=== PATIENT | male | born 1950 | race Caucasian/White ===

== ENCOUNTER 2018-09-17 02:19 | Emergency (ER) | payer SELFPAY ==
--- NOTE | 2018-09-17 02:41 | C.PDOC ---
History Of Present Illness Patient presents with not feeling well for about 3 days. Also complains of headache and some palpitations. No chest pain. Speaking in complete sentences. No f/c/n/v Time Seen by Provider: 09/17/18 02:40 History Per: Patient History/Exam Limitations: no limitations Onset/Duration Of Symptoms: Days Current Symptoms Are (Timing): Still Present Severity: Moderate Pain Scale Rating Of: 4 Recent travel outside of the [place]: No Additional History Per: Patient Past Medical History Reviewed: Historical Data, Nursing Documentation, Vital Signs - Medical History PMH: HTN, Hyperlipidemia Denies: Chronic Kidney Disease Surgical History: Hernia Repair Family History: States: No Known Family Hx - Social History Hx Tobacco Use: Yes (1 pack a day ) Hx Alcohol Use: No Hx Substance Use: No Review Of Systems Constitutional: Negative for: Fever, Chills Eyes: Negative for: Redness ENT: Negative for: Throat Pain Cardiovascular: Positive for: Palpitations. Negative for: Chest Pain Respiratory: Negative for: Shortness of Breath Gastrointestinal: Negative for: Abdominal Pain Genitourinary: Negative for: Dysuria Musculoskeletal: Negative for: Back Pain Skin: Negative for: Rash Neurological: Positive for: Headache Psych: Negative for: Anxiety Physical Exam - Physical Exam Appears: Non-toxic, No Acute Distress Skin: Warm, Dry Head: Normacephalic Eye(s): bilateral: Normal Inspection Oral Mucosa: Moist Neck: Supple Chest: Symmetrical Cardiovascular: Rhythm Regular Respiratory: No Rales, No Rhonchi, No Wheezing Gastrointestinal/Abdominal: Soft, No Tenderness, No Distention Back: Normal Inspection Extremity: Normal ROM Extremity: Bilateral: Atraumatic, No Pedal Edema Pulses: Left Dorsalis Pedis: Normal, Right Dorsalis Pedis: Normal Neurological/Psych: Oriented x3, Normal Speech, Normal Cognition Gait: Steady ED Course And Treatment - Laboratory Results Result Diagrams: 09/17/18 03:16 09/17/18 03:16 ECG: Interpreted By Me, Viewed By Me ECG Rhythm: Sinus Rhythm (54), Nonspecific Changes O2 Sat by Pulse Oximetry: 97 Pulse Ox Interpretation: Normal - Radiology CXR: Interpreted by Me, Viewed By Me CXR Interpretation: No: Infiltrates, Fracture, Pnemothorax Progress Note: patient states that he feels well and wants to go home. Understands the risks of posssible permanent disability and , but pt still wants to go home. No chest pain or palpitations. Will follow up in clinic Reevaluation Time: 06:12 Reassessment Condition: Improved Disposition Counseled Patient/Family Regarding: Studies Performed, Diagnosis, Need For Followup - Disposition Referrals: Estela Salguero MD [Medical Doctor] - Disposition: HOME/ ROUTINE Disposition Time: 02:40 Condition: FAIR Additional Instructions: Por favor regrese si los sntomas recurren o simplemente no se sienten roger. Necesitar un monitor de eventos Instructions: Palpitations (DC) Print Language: ITALIAN - Clinical Impression Clinical Impression: Palpitations
[2018-09-17] MEDS ORDERED: Aspirin 325 mg EC Tablets PO STA (02:57)
[2018-09-17] MEDS ORDERED: Aspirin 325 mg EC Tablets PO ONE (03:04)
[2018-09-17 03:24] LABS: VENOUS BLOOD GAS BASE EXCESS 4.7 mmol/L (0.0-2.0); VENOUS BLOOD GAS PCO2 51 mmHg (40-60); VENOUS BLOOD GAS PO2 33 mm/Hg (30-55); VENOUS BLOOD PH 7.39 (7.32-7.43)
[2018-09-17 03:27] LABS: PROTHROMBIN TIME 11.4 SECONDS (9.7-12.2)
[2018-09-17 03:31] LABS: BASO # 0.2 K/uL (0.0-0.2); HEMOGLOBIN 13.3 g/dL (12.0-18.0); LYMPH # 0.9 K/uL (1.0-4.3); LYMPH % 13.9 % (20.0-40.0); MEAN CELL VOLUME 94.1 fL (80.0-94.0); MEAN CORPUSCULAR HEMOGLOBIN 31.5 pg (27.0-31.0); MEAN CORPUSCULAR HGB CONC 33.5 g/dL (33.0-37.0); MEAN PLATELET VOLUME 10.9 fL (7.2-11.7); MONO # 0.5 K/uL (0.0-0.8); MONO % 7.4 % (0.0-10.0); NEUT # 3.7 K/uL (1.8-7.0); NEUT % 59.7 % (50.0-75.0); RBC 4.23 Mil/uL (4.40-5.90); WHITE BLOOD COUNT 6.2 K/uL (4.8-10.8)
[2018-09-17 03:32] LABS: ALB/GLOB RATIO 1.3 (1.0-2.1); ALBUMIN 4.3 g/dL (3.5-5.0); BLOOD UREA NITROGEN 25 mg/dL (9-20); GFR NON-AFRICAN AMERICAN > 60
[2018-09-17 03:43] LABS: B-TYPE NATRIURETIC PEPTIDE 102 pg/mL (0-900)
[2018-09-17 04:04] LABS: ALT/SGPT 25 U/L (21-72); AST/SGOT 32 U/L (17-59)
[2018-09-17 04:42] LABS: URINE BILIRUBIN NEGATIVE (NEGATIVE); URINE BLOOD NEGATIVE (NEGATIVE); URINE CLARITY Clear (Clear); URINE COLOR Straw (YELLOW); URINE GLUCOSE (UA) NORMAL (Normal); URINE LEUKOCYTE ESTERASE NEG Leu/uL (Negative); URINE PROTEIN NEGATIVE (NEGATIVE); URINE UROBILINOGEN NORMAL mg/dL (0.2-1.0)
[2018-09-17 06:27] VITALS: BP 127/73; PULSE 57; RESP 18; TEMP 98.2; O2SAT 98
--- NOTE | 2018-09-17 08:52 | RAD ---
Chest x-ray single frontal view HISTORY: Chest pain. COMPARISON: 05/21/2016 FINDINGS: Moderate venous congestion. Patchy increased markings at both lung bases. Small left pleural effusion. Enlarged ectatic aorta. Cardiomegaly. Degenerative changes in the spine and shoulders. Impression: Moderate venous congestion. Patchy increased markings at both lung bases. Small left pleural effusion. Enlarged ectatic aorta. Cardiomegaly.
== END 2018-09-17 06:26 | disposition home or self-care (01) ==
LOC: C.ER 02:19
DX: R00.2 Palpitations (principal); I10 Essential (primary) hypertension; E78.5 Hyperlipidemia, unspecified; Z87.891 Personal history of nicotine dependence

== ENCOUNTER 2018-09-25 11:30 | Inpatient (IN) | payer OTHER ==
--- NOTE | 2018-09-25 12:48 | C.PDOC ---
History Of Present Illness 68 y/o male presents to ED c/o chest pain since last night. He also complains of dizziness and frontal headache. Pt notes he suffers from palpitations and was referred to suture gauger and has an appointment scheduled for 10/04. Chest pain is 6/10 in severity. Denies syncope, shortness of breath, or fever. He reports taking Aspirin last night. Financial Reporting Accountant Jose ([id number]) was used. <Jailene Pena - Last Filed: 09/25/18 16:30> <Phylicia Ramey - Last Filed: 09/25/18 12:33> History Per: Patient History/Exam Limitations: no limitations <Jailene Pean - Last Filed: 09/25/18 16:30> Time Seen by Provider: 09/25/18 12:05 Chief Complaint (Nursing): Chest Pain Past Medical History Vital Signs: Last Vital Signs Temp 98.2 F 09/25/18 12:00 Pulse 67 09/25/18 12:10 Resp 20 09/25/18 12:00 BP 124/68 09/25/18 12:10 Pulse Ox 98 09/25/18 12:00 - Medical History PMH: HTN, Hyperlipidemia Denies: Chronic Kidney Disease Surgical History: Hernia Repair - Social History Hx Tobacco Use: Yes (1 pack a day ) Hx Alcohol Use: No Hx Substance Use: No - Immunization History Hx Tetanus Toxoid Vaccination: No Hx Influenza Vaccination: No Hx Pneumococcal Vaccination: No <Phylicia Ramey - Last Filed: 09/25/18 12:33> Vital Signs: Last Vital Signs Temp 98.1 F 09/25/18 14:47 Pulse 56 L 09/25/18 14:47 Resp 18 09/25/18 14:47 BP 118/70 09/25/18 14:47 Pulse Ox 98 09/25/18 14:47 <Jailene Pena - Last Filed: 09/25/18 16:30> Physical Exam - Physical Exam Additional Physical Exam Comments: Gen: NAD, cooperative, well appearing, non-toxic. Head: NCAT. HEENT: EYES: PERRL, EOMI, conjunctiva clear, EARS: TMs clear MOUTH: moist MM, posterior pharynx without erythema or exudate, uvula midline. Neck: Normal ROM, supple. No paracervical or midline tenderness. CV: (+) S1S2, RRR, no M/G/R LUNGS: CTA B/L, No W/R/R, good air movement Abd: Soft, NTTP, no guarding, rebound or rigidity. Neuro: AAO x 3, GCS 15, CN 2-12 intact, motor and sensory grossly intact, 5/5 muscle strength B/L UE's and LE's. ext: no cyanosis or edema <Jailene Pena - Last Filed: 09/25/18 16:30> ED Course And Treatment O2 Sat by Pulse Oximetry: 98 <Phylicia Ramey - Last Filed: 09/25/18 12:33> - Laboratory Results Result Diagrams: 09/25/18 14:16 09/25/18 14:16 <Jailene Pena - Last Filed: 09/25/18 16:30> Disposition <Phylicia Ramey - Last Filed: 09/25/18 12:33> <Jailene Pena - Last Filed: 09/25/18 16:30> - Disposition Forms: [employer] ([place]) - Scribe Statement The provider has reviewed the documentation as recorded by the Scribe KP All medical record entries made by the Scribe were at my direction and personally dictated by me. I have reviewed the chart and agree that the record accurately reflects my personal performance of the history, physical exam, medical decision making, and the department course for this patient. I have also personally directed, reviewed, and agree with the discharge instructions and disposition. <Jailene Pena - Last Filed: 09/25/18 16:30>
[2018-09-25] MEDS ORDERED: Aspirin 325 mg EC Tablets PO STA (12:50)
[2018-09-25] MEDS ORDERED: Aspirin 325 mg EC Tablets PO ONE (13:04)
--- NOTE | 2018-09-25 13:12 | RAD ---
Date of service: 09/25/2018 PROCEDURE: CHEST RADIOGRAPH, 1 VIEW HISTORY: chest pain COMPARISON: 09/17/2018 FINDINGS: LUNGS: The lungs are well inflated and clear. PLEURA: No pneumothorax or pleural effusion. CARDIOVASCULAR: The heart is normal in size. No aortic atherosclerotic calcifications present. OSSEOUS STRUCTURES: Within normal limits for the patient's age. VISUALIZED UPPER ABDOMEN: Normal. OTHER FINDINGS: None. IMPRESSION: No active pulmonary disease.
[2018-09-25 14:24] LABS: BASO # 0.1 K/uL (0.0-0.2); EOS # 0.8 K/uL (0.0-0.7); EOS % 14.2 % (0.0-4.0); LYMPH # 1.4 K/uL (1.0-4.3); LYMPH % 24.3 % (20.0-40.0); MEAN CELL VOLUME 95.1 fL (80.0-94.0); MEAN CORPUSCULAR HEMOGLOBIN 31.7 pg (27.0-31.0); MEAN CORPUSCULAR HGB CONC 33.3 g/dL (33.0-37.0); MEAN PLATELET VOLUME 11.7 fL (7.2-11.7); MONO # 0.4 K/uL (0.0-0.8); MONO % 7.8 % (0.0-10.0); NEUT % 52.7 % (50.0-75.0); NRBC % 0.1 % (0.0-2.0); RBC 4.1 Mil/uL (4.40-5.90); RED CELL DISTRIBUTION WIDTH 12.7 % (11.5-14.5); WHITE BLOOD COUNT 5.7 K/uL (4.8-10.8)
[2018-09-25 14:46] LABS: ALB/GLOB RATIO 1.4 (1.0-2.1); ALBUMIN 4.4 g/dL (3.5-5.0); ALT/SGPT 24 U/L (21-72); AST/SGOT 37 U/L (17-59); BLOOD UREA NITROGEN 17 mg/dL (9-20); CALCIUM 8.9 mg/dl (8.6-10.4); GFR NON-AFRICAN AMERICAN > 60
--- NOTE | 2018-09-25 16:33 | C.PDOC ---
Time Seen by Provider: 09/25/18 12:05 Chief Complaint (Nursing): Chest Pain Past Medical History Vital Signs: Last Vital Signs Temp 98.1 F 09/25/18 14:47 Pulse 56 L 09/25/18 14:47 Resp 18 09/25/18 14:47 BP 118/70 09/25/18 14:47 Pulse Ox 98 09/25/18 14:47 - Medical History PMH: HTN, Hyperlipidemia Denies: Chronic Kidney Disease Surgical History: Hernia Repair - Social History Hx Tobacco Use: Yes (1 pack a day ) Hx Alcohol Use: No Hx Substance Use: No - Immunization History Hx Tetanus Toxoid Vaccination: No Hx Influenza Vaccination: No Hx Pneumococcal Vaccination: No ED Course And Treatment - Laboratory Results Result Diagrams: 09/25/18 14:16 09/25/18 14:16 O2 Sat by Pulse Oximetry: 98
--- NOTE | 2018-09-25 16:35 | C.PDOC ---
History Of Present Illness 68 y/o male presents to ED c/o intermittent nonradiating substernal chest pain since last night. He says the pain is 7/10 on pain scale at its worst. He has not taken any medication for pain. He also complains of dizziness and frontal headache. Pt notes he suffers from palpitations and was referred to party plan salesperson and has an appointment scheduled for 10/04. Chest pain now is 5-6/10. Denies recent travel or hospitalizations, diaphoresis, nausea, vomiting, syncope, shortness of breath, or fever. He reports taking Aspirin last night. Fitter Placer Jose ([id number]) was used. Time Seen by Provider: 09/25/18 12:05 Chief Complaint (Nursing): Chest Pain History Per: Patient History/Exam Limitations: no limitations Past Medical History Reviewed: Historical Data, Nursing Documentation, Vital Signs Vital Signs: Last Vital Signs Temp 98.1 F 09/25/18 14:47 Pulse 56 L 09/25/18 14:47 Resp 18 09/25/18 14:47 BP 118/70 09/25/18 14:47 Pulse Ox 98 09/25/18 14:47 - Medical History PMH: HTN, Hyperlipidemia Denies: Chronic Kidney Disease Surgical History: Hernia Repair Family History: States: Unknown Family Hx - Social History Hx Tobacco Use: Yes (1 pack a day ) Hx Alcohol Use: No Hx Substance Use: No - Immunization History Hx Tetanus Toxoid Vaccination: No Hx Influenza Vaccination: No Hx Pneumococcal Vaccination: No Review Of Systems Except As Marked, All Systems Reviewed And Found Negative. Constitutional: Negative for: Fever, Chills Cardiovascular: Positive for: Chest Pain Gastrointestinal: Negative for: Nausea, Vomiting, Abdominal Pain Neurological: Positive for: Headache, Dizziness Physical Exam - Physical Exam Additional Physical Exam Comments: Gen: NAD, cooperative, well appearing, non-toxic. Head: NCAT. HEENT: EYES: PERRL, EOMI, conjunctiva clear, MOUTH: moist MM, posterior pharynx without erythema or exudate, uvula midline. Neck: Supple, normal ROM. No midline or paracervical tenderness. CV: (+) S1S2, RRR, no M/G/R LUNGS: CTA B/L, No W/R/R, good air movement Abd: Soft, NTTP, no guarding, rebound or rigidity. Neuro: AAO x 3, GCS 15, CN 2-12 intact, motor and sensory grossly intact, 5/5 muscle strength B/L UE's and LE's. Ext: no cyanosis or edema ED Course And Treatment - Laboratory Results Result Diagrams: 09/25/18 14:16 18 14:16 ECG: Interpreted By Me, Viewed By Me ECG Rhythm: Sinus Bradycardia ECG Interpretation: No Acute Changes Interpretation Of ECG: Normal intervals, normal axis. No ST/T wave changes. Q waves in anterior leads. No ischemia. Rate From EC (bpm) O2 Sat by Pulse Oximetry: 98 (RA) Pulse Ox Interpretation: Normal Medical Decision Making Medical Decision Making: Plan: Blood work Urinalysis ECG CXR Aspirin Tylenol Nitroglycerin 15:25 Patient reassessed, denies any chest pain or discomfort. Results of w/u d/w pt who is agreeable w/POC. 15:[address] Miranda who agrees with plan to admit under his service. Disposition Counseled Patient/Family Regarding: Studies Performed, Diagnosis - Disposition Disposition: HOSPITALIZED Disposition Time: 15:40 Condition: STABLE - POA Present On Arrival: None - Clinical Impression Clinical Impression: Chest pain - Scribe Statement The provider has reviewed the documentation as recorded by the Scribe KP All medical record entries made by the Scribe were at my direction and personally dictated by me. I have reviewed the chart and agree that the record accurately reflects my personal performance of the history, physical exam, medical decision making, and the department course for this patient. I have also personally directed, reviewed, and agree with the discharge instructions and disposition.
[2018-09-25] MEDS ORDERED: Pantoprazole 40 mg EC Tab PO ONE (17:26)
[2018-09-25] MEDS: Pantoprazole 40 mg EC Tab PO SCH (17:30)
[2018-09-25 18:08] LABS: CK-MB 1.26 ng/mL (0.0-3.38); TROPONIN I 0.016 ng/mL (0.00-0.120)
--- NOTE | 2018-09-25 22:48 | CP.PCM.HP ---
Past Patient History - Infectious Disease Hx of Infectious Diseases: None - Past Medical History & Family History Past Medical History?: Yes - Past Social History Smoking Status: Former Smoker - CARDIAC Hx Hypertension: Yes - PULMONARY Hx Respiratory Disorders: No - NEUROLOGICAL Hx Neurological Disorder: No - HEENT Hx HEENT Problems: No - RENAL Hx Chronic Kidney Disease: No - ENDOCRINE/METABOLIC Hx Endocrine Disorders: No - HEMATOLOGICAL/ONCOLOGICAL Hx Blood Disorders: No - INTEGUMENTARY Hx Dermatological Problems: No - MUSCULOSKELETAL/RHEUMATOLOGICAL Hx Musculoskeletal Disorders: No Hx Falls: No - GASTROINTESTINAL Hx Gastrointestinal Disorders: No - GENITOURINARY/GYNECOLOGICAL Hx Genitourinary Disorders: No - PSYCHIATRIC Hx Substance Use: No - SURGICAL HISTORY Hx Surgeries: Yes Hx Herniorrhaphy: Yes (RIGHT INGUINAL) - ANESTHESIA Hx Anesthesia: Yes Hx Anesthesia Reactions: No Hx Malignant Hyperthermia: No Meds Allergies/Adverse Reactions: Allergies Allergy/AdvReac Type Severity Reaction Status Date / Time No Known Allergies Allergy Verified 09/17/18 02:47 Results - Vital Signs Recent Vital Signs: Last Vital Signs Temp 97.8 F 09/25/18 18:26 Pulse 60 09/25/18 18:26 Resp 18 09/25/18 18:26 BP 133/76 09/25/18 18:26 Pulse Ox 98 09/25/18 18:26 - Labs Result Diagrams: 09/25/18 14:16 09/25/18 14:16 Labs: Laboratory Results - last 24 hr 09/25/18 09/25/18 09/25/18 14:16 14:16 17:20 WBC 5.7 RBC 4.10 L Hgb 13.0 Hct 38.9 MCV 95.1 H MCH 31.7 H MCHC 33.3 RDW 12.7 Plt Count 150 MPV 11.7 Neut % (Auto) 52.7 Lymph % (Auto) 24.3 [place] % (Auto) 7.8 Eos % (Auto) 14.2 H Baso % (Auto) 1.0 Neut # (Auto) 3.0 Lymph # (Auto) 1.4 [place] # (Auto) 0.4 Eos # (Auto) 0.8 H Baso # (Auto) 0.1 Sodium 135 Potassium 4.7 Chloride 100 Carbon Dioxide 26 Anion Gap 14 BUN 17 Creatinine 1.0 Est GFR ( Amer) > 60 Est GFR (Non-Af Amer) > 60 Random Glucose 80 Calcium 8.9 Magnesium 2.3 Total Bilirubin 0.6 AST 37 ALT 24 Alkaline Phosphatase 45 Total Creatine Kinase 167 CK-MB (Mass) 1.26 Troponin I 0.0170 0.0160 Total Protein 7.5 Albumin 4.4 Globulin 3.1 Albumin/Globulin Ratio 1.4 Triglycerides 54 D Cholesterol 175 LDL Cholesterol Direct 90 HDL Cholesterol 58 TSH 3rd Generation 0.39 L
[2018-09-26 00:51] LABS: CK-MB 1.31 ng/mL (0.0-3.38); TROPONIN I 0.018 ng/mL (0.00-0.120)
[2018-09-26 01:21] VITALS: RESP 20
--- NOTE | 2018-09-26 07:24 | HP ---
HISTORY OF PRESENT ILLNESS: This is a 68-year-old male with history of hypertension, hyperlipidemia, who is a nonsmoker. He denies any history of diabetes. He is in his usual state of health. He is ambulatory and independent in activities of daily living. He came in because of intermittent, nonradiating substernal chest pain, started last night on a scale of 7 to 10. It is nonradiating, nonexertional, and he denies any cough, pleurisy, dyspepsia, nausea, or vomiting. He also complains of dizziness, and he has headache. According to , he has seen his primary care doctor. He was referred to a bench machine operator with an appointment on 10/04/2018, and chest pain is on and off. He denies any history of dizziness or vertigo. He denies any history of cough, sore throat, or runny nose. He denies any history of abdominal pain, nausea, or vomiting. He denies any bloating. He denies any hematuria or pyuria. He denies any sneezing, itchy eyes, or itchy nose. PAST MEDICAL HISTORY: Hypertension, hyperlipidemia. SOCIAL HISTORY: Nonsmoker. He smokes one pack per day. Non-ETOH abuser. CURRENT MEDICATIONS: He is on Nexium, Plavix, candesartan, aspirin, and Roxicam. PHYSICAL EXAMINATION: GENERAL: An elderly male in no acute distress. He denies any chest pain right now. SKIN: Senile. VITAL SIGNS: Blood pressure is 133/76, pulse 60, respiratory rate 18, and temperature 97.8. SKIN: Senile turgor. No bruises. No purpura. HEENT: Atraumatic and normocephalic. Negative pallor. Negative jaundice. Extraocular movements are intact. NECK: Supple. No JVD. No lymph node. No thyromegaly. CHEST WALL: Bilateral symmetrical expansion. LUNGS: Bilaterally clear. No rales. No rhonchi. CARDIOVASCULAR SYSTEM: PMI not localized. S1 and S2 regular. ABDOMEN: Soft and nontender. Bowel sounds are positive. GENITAL: Normal. EXTREMITIES: No clubbing, cyanosis, or edema. CENTRAL NERVOUS SYSTEM: Awake, alert, and oriented x3. Cranial nerves II through XII are normal. Power 5/5 x4. Plantars are downgoing. ASSESSMENT: 1. Chest pain, rule out myocardial infarction. 2. Hypertension. 3. Dyslipidemia. PLAN: Admit. Detailed orders written. Seen and examined. Sam Miranda MD
[2018-09-26 08:05] LABS: CK-MB 1.14 ng/mL (0.0-3.38)
[2018-09-26 08:07] LABS: TROPONIN I 0.015 ng/mL (0.00-0.120)
[2018-09-26] MEDS ORDERED: Influenza Vaccine 60 MCG/0.5 ML SYR (3 yr & up) IM ONE (10:00)
[2018-09-26] MEDS: Pantoprazole 40 mg EC Tab PO SCH (10:19)
[2018-09-26] MEDS: Enoxaparin 40 mg Syringe SC SCH (10:19)
--- NOTE | 2018-09-26 20:13 | CP.PCM.PN ---
Subjective - Subjective Subjective: dictated Objective - Vital Signs/Intake and Output Vital Signs (last 24 hours): Temp Pulse Resp BP Pulse Ox 97.7 F 56 L 20 119/70 95 09/26/18 16:21 09/26/18 16:21 09/26/18 16:21 09/26/18 16:21 09/26/18 16:21 - Medications Medications: Current Medications Aspirin (Aspirin Chewable) 81 mg PO DAILY [facility] Last Admin: 09/26/18 10:19 Dose: 81 mg Clopidogrel Bisulfate (Plavix) 75 mg PO DAILY [facility] Last Admin: 09/26/18 10:19 Dose: 75 mg Enoxaparin Sodium (Lovenox) 40 mg SC DAILY [facility] Last Admin: 09/26/18 10:19 Dose: 40 mg Losartan Potassium (Cozaar) 100 mg PO DAILY [facility] Last Admin: 09/26/18 10:19 Dose: 100 mg Nitroglycerin (Nitrostat Sl Tab) 0.4 mg SL Q5M PRN PRN Reason: chest pain Last Admin: 09/26/18 17:22 Dose: 0.4 mg Pantoprazole Sodium (Protonix Ec Tab) 40 mg PO DAILY [facility] Last Admin: 09/26/18 10:19 Dose: 40 mg Pneumococcal Polyvalent Vaccine (Pneumovax 23 Vaccine) 0.5 ml IM .ONCE ONE Stop: 09/27/18 10:01 Rosuvastatin Calcium (Crestor) 20 mg PO [facility] Last Admin: 09/25/18 22:16 Dose: 20 mg - Labs Labs: 09/25/18 14:16 09/25/18 14:16
--- NOTE | 2018-09-27 03:41 | PN ---
DATE: 09/26/2018 SUBJECTIVE: Loki Salguero has chest pain, headache, and dizziness. No fever. No chills. No nausea or vomiting. He is for exercise. PHYSICAL EXAMINATION: VITAL SIGNS: BP 119/70, pulse 56, respiratory rate 20, and temperature 97.7. LUNGS: Clear. No rales. No rhonchi. CARDIOVASCULAR SYSTEM: S1 and S2 are regular. ABDOMEN: Soft, nontender. Bowel sounds are positive. ASSESSMENT: 1. Chest pain, rule out myocardial infarction, rule out coronary artery disease. 2. Headache and palpitation, could be side effect of blood pressure medication. 3. Hyperlipidemia. PLAN: Continue current medications. Monitor the patient. Sam Miranda MD
[2018-09-27] MEDS ORDERED: Caffeine Citrated **INJ** 20 MG/ML IV ONE (07:55)
--- NOTE | 2018-09-27 08:08 | CP.PCM.CON ---
<Adrianna Diaz - Last Filed: 09/27/18 16:51> History of Present Illness - History of Present Illness History of Present Illness: Cardiology Consult Note This is a 68 year old male with past medical history of Hypertension, Hyperlipidemia, Tobacco Use Disorder 1 PPD, Prostate CA s/p radiation, who was referred to our service by Dr. Miranda, for chest pain. Patient reports he started to have severe substernal chest pain, associated with diaphoresis, headache, and diizziness. The chest pain was not associated with exertion or radiation. He did not take anything for the pain. He follows up routinely with his PMD and had an appointment arranged to follow up with a dial refinisher on 10/04/18. Denied any current headache, changes in vision, chest pain, shortness of breath, abdominal pain, nausea, or urinary complaints. PMHx: As noted above PSHx: hernia repair All: NKDA SHx: Admits to 1 PPD for 20+ years FHx: Unremarkable Review of Systems - Constitutional Constitutional: absent: Chills, Fatigue, Fever, Lethargy - EENT Eyes: absent: Blurred Vision, Change in Vision Ears: absent: Ear Discharge, Tinnitus Nose/Mouth/Throat: absent: Dysphagia - Cardiovascular Cardiovascular: absent: Chest Pain, Chest Pain at Rest, Dyspnea, Edema - Respiratory Respiratory: absent: Cough, Dyspnea, Wheezing - Gastrointestinal Gastrointestinal: absent: Abdominal Pain, Nausea, Vomiting - Genitourinary Genitourinary: absent: Dysuria, Hematuria - Musculoskeletal Musculoskeletal: absent: Arthralgias, Stiffness - Neurological Neurological: absent: Focal Weakness, Loss of Vision, Syncope, Weakness - Hematologic/Lymphatic Hematologic: absent: Easy Bleeding, Easy Bruising, Lymphadenopathy Past Patient History - Infectious Disease Hx of Infectious Diseases: None - Past Medical History & Family History Past Medical History?: Yes - Past Social History Smoking Status: Former Smoker - CARDIAC Hx Hypertension: Yes - PULMONARY Hx Respiratory Disorders: No - NEUROLOGICAL Hx Neurological Disorder: No - HEENT Hx HEENT Problems: No - RENAL Hx Chronic Kidney Disease: No - ENDOCRINE/METABOLIC Hx Endocrine Disorders: No - HEMATOLOGICAL/ONCOLOGICAL Hx Blood Disorders: No - INTEGUMENTARY Hx Dermatological Problems: No - MUSCULOSKELETAL/RHEUMATOLOGICAL Hx Musculoskeletal Disorders: No Hx Falls: No - GASTROINTESTINAL Hx Gastrointestinal Disorders: No - GENITOURINARY/GYNECOLOGICAL Hx Genitourinary Disorders: No - PSYCHIATRIC Hx Substance Use: No - SURGICAL HISTORY Hx Surgeries: Yes Hx Herniorrhaphy: Yes (RIGHT INGUINAL) - ANESTHESIA Hx Anesthesia: Yes Hx Anesthesia Reactions: No Hx Malignant Hyperthermia: No Meds Allergies/Adverse Reactions: Allergies Allergy/AdvReac Type Severity Reaction Status Date / Time No Known Allergies Allergy Verified 09/17/18 02:47 - Medications Medications: Current Medications Aspirin (Aspirin Chewable) 81 mg PO DAILY [facility] Last Admin: 09/26/18 10:19 Dose: 81 mg Clopidogrel Bisulfate (Plavix) 75 mg PO DAILY [facility] Last Admin: 09/26/18 10:19 Dose: 75 mg Enoxaparin Sodium (Lovenox) 40 mg SC DAILY [facility] Last Admin: 09/26/18 10:19 Dose: 40 mg Losartan Potassium (Cozaar) 25 mg PO DAILY [facility] Nitroglycerin (Nitrostat Sl Tab) 0.4 mg SL Q5M PRN PRN Reason: chest pain Last Admin: 09/26/18 17:22 Dose: 0.4 mg Pantoprazole Sodium (Protonix Ec Tab) 40 mg PO DAILY [facility] Last Admin: 09/26/18 10:19 Dose: 40 mg Pneumococcal Polyvalent Vaccine (Pneumovax 23 Vaccine) 0.5 ml IM .ONCE ONE Stop: 09/27/18 10:01 Rosuvastatin Calcium (Crestor) 20 mg PO [facility] Last Admin: 09/26/18 22:12 Dose: 20 mg Physical Exam - Constitutional Appears: No Acute Distress - Head Exam Head Exam: NORMAL INSPECTION, NORMOCEPHALIC - Eye Exam Eye Exam: EOMI, Normal appearance Pupil Exam: NORMAL ACCOMODATION - ENT Exam ENT Exam: Mucous Membranes Moist - Respiratory Exam Respiratory Exam: Clear to Auscultation Bilateral, NORMAL BREATHING PATTERN - Cardiovascular Exam Cardiovascular Exam: +S1, +S2. absent: Systolic Murmur - GI/Abdominal Exam GI & Abdominal Exam: Normal Bowel Sounds, Soft. absent: Distended - Extremities Exam Extremities exam: Positive for: normal inspection, pedal pulses present. Negative for: pedal edema, tenderness - Neurological Exam Neurological exam: Alert, Oriented x3 - Psychiatric Exam Psychiatric exam: Normal Affect, Normal Mood - Skin Skin Exam: Dry, Intact, Normal Color, Warm Results - Vital Signs Recent Vital Signs: Last Vital Signs Temp 97.6 F 09/27/18 07:00 Pulse 59 L 09/27/18 07:26 Resp 20 09/27/18 07:00 BP 121/75 09/27/18 07:00 Pulse Ox 96 09/27/18 07:00 - Labs Result Diagrams: 09/25/18 14:16 09/25/18 14:16 Labs: Laboratory Results - last 24 hr 09/26/18 12:31 POC Glucose (mg/dL) 79 Assessment & Plan - Assessment and Plan (Free Text) Plan: Chest Pain r/o ACS Hx of Hypertension, Hyperlipidemia, Tobacco Use Disorder 1 PPD, Prostate CA s/p radiation Imaging: - EJ x3 negative, EKG x 3 - no st changes noted - ECHO: ordered, pending results - Nuclear Stress Test: inferior wall ischemia noted, will plan for cardiac catherization 09/28/18 3pm Management: - Continue with ASA, Plavix, Cozaar, Crestor - Nuclear Stress Test: inferior wall ischemia noted, will plan for cardiac catherization 09/28/18 3pm Case discussed with Adrianna Medeiros DO, PGY2 <Mitchell Lo - Last Filed: 09/27/18 21:37> Meds - Medications Medications: Current Medications Aspirin (Aspirin Chewable) 81 mg PO DAILY [facility] Last Admin: 09/27/18 09:59 Dose: 81 mg Clopidogrel Bisulfate (Plavix) 75 mg PO DAILY [facility] Last Admin: 09/27/18 09:59 Dose: 75 mg Enoxaparin Sodium (Lovenox) 40 mg SC DAILY [facility] Last Admin: 09/27/18 09:59 Dose: 40 mg Losartan Potassium (Cozaar) 25 mg PO DAILY [facility] Last Admin: 09/27/18 09:59 Dose: 25 mg Nitroglycerin (Nitrostat Sl Tab) 0.4 mg SL Q5M PRN PRN Reason: chest pain Last Admin: 09/26/18 17:22 Dose: 0.4 mg Pantoprazole Sodium (Protonix Ec Tab) 40 mg PO DAILY [facility] Last Admin: 09/27/18 09:59 Dose: 40 mg Rosuvastatin Calcium (Crestor) 20 mg PO HS [facility] Last Admin: 09/26/18 22:12 Dose: 20 mg Results - Vital Signs Recent Vital Signs: Last Vital Signs Temp 98 F 09/27/18 15:40 Pulse 55 L 09/27/18 15:40 Resp 20 09/27/18 15:40 BP 120/73 09/27/18 15:40 Pulse Ox 96 09/27/18 15:40 - Labs Result Diagrams: 09/25/18 14:16 09/25/18 14:16 Labs: Laboratory Results - last 24 hr 09/27/18 18:08 Total Creatine Kinase 139 CK-MB (Mass) 1.17 Troponin I 0.0150 Assessment & Plan - Assessment and Plan (Free Text) Plan: Patient seen and evaluated personally by me Plan of care d/w the medical communication specialist and as documented
--- NOTE | 2018-09-27 08:57 | CT ---
Date of service: 09/26/2018 PROCEDURE: CT HEAD WITHOUT CONTRAST. HISTORY: throbbing headache COMPARISON: None available. TECHNIQUE: Axial computed tomography images were obtained through the head/brain without intravenous contrast. Radiation dose: Total exam DLP = 1017.68 mGy-cm. This CT exam was performed using one or more of the following dose reduction techniques: Automated exposure control, adjustment of the mA and/or kV according to patient size, and/or use of iterative reconstruction technique. FINDINGS: HEMORRHAGE: No intracranial hemorrhage. BRAIN: No mass effect or edema. No atrophy or chronic microvascular ischemic changes. Prominent cisterna magna. VENTRICLES: Unremarkable. No hydrocephalus. CALVARIUM: Unremarkable. PARANASAL SINUSES: Unremarkable as visualized. No significant inflammatory changes. MASTOID AIR CELLS: Unremarkable as visualized. No inflammatory changes. OTHER FINDINGS: None. IMPRESSION: No acute intracranial abnormality. If symptoms persists, consider correlation with MRI. A preliminary report was generated at 6:45 p.m. on 09/26/[address] Anand Pacheco from [facility].
[2018-09-27] MEDS: Enoxaparin 40 mg Syringe SC SCH (09:59)
[2018-09-27] MEDS: Pantoprazole 40 mg EC Tab PO SCH (09:59)
[2018-09-27] MEDS ORDERED: Pneumococcal 23-Valent Vaccine IM ONE (10:00)
--- NOTE | 2018-09-27 15:05 | CARD ---
APPROVED REPORT Date of service: 09/25/2018 EKG Measurement Heart [id number] <Conclusion> Poor data quality, interpretation may be adversely affected Sinus bradycardia Cannot rule out Anterior infarct, age undetermined Abnormal ECG
--- NOTE | 2018-09-27 15:05 | CARD ---
APPROVED REPORT Date of service: 09/25/2018 EKG Measurement Heart [id number] <Conclusion> Sinus bradycardia Cannot rule out Anterior infarct, age undetermined Abnormal ECG
--- NOTE | 2018-09-27 18:06 | CARD ---
APPROVED REPORT Date of service: 09/27/2018 EXAM: Two-dimensional and M-mode echocardiogram with Doppler and color Doppler. Other Information Quality : GoodRhythm : INDICATION Cardiac Disease: CAD Chest Pain Palpitations 2D DIMENSIONS IVSd0.8 (0.7-1.1cm)LVDd5.5 (3.9-5.9cm) PWd0.7 (0.7-1.1cm)LA Kqtycl03 (18-58mL) LVDs3.1 (2.5-4.0cm)FS (%) 44.3 % LVEF (%)75.0 (>50%)LVEF (Newell's)64.56 % IVC0.00 cm M-Mode DIMENSIONS Left Atrium (MM)4.41 (2.5-4.0cm)IVSd1.09 (0.7-1.1cm) Aortic Root3.28 (2.2-3.7cm)LVDd5.49 (4.0-5.6cm) Aortic Cusp Exc.1.99 (1.5-2.0cm)PWd1.02 (0.7-1.1cm) FS (%) 41 %LVDs3.27 (2.0-3.8cm) LVEF (%)71 (>50%) Mitral Valve MV E Mzpozsro60.1cm/sMV A Lpecaqep14.6cm/sE/A ratio0.5 TDI Lateral E' Peak V5.77cm/sMedial E' Peak V5.64cm/sE/Lateral E'7.5 E/Medial E'7.6 Tricuspid Valve TR Peak Nukmgqtz004mo/sTR Peak Gr.74wlQdBRPR62knSi LEFT VENTRICLE The left ventricle is normal size. There is normal left ventricular wall thickness. The left ventricular function is normal. The left ventricular ejection fraction is within the normal range. 65% No regional wall motion abnormalities noted. Transmitral Doppler flow pattern is Grade I-abnormal relaxation pattern. No left ventricle thrombus noted on this study. There is no ventricular septal defect visualized. There is no left ventricular aneurysm. There is no mass noted in the left ventricle. RIGHT VENTRICLE The right ventricle is normal size. There is normal right ventricular wall thickness. The right ventricular systolic function is normal. ATRIA The left atrium size is normal. The right atrium size is normal. The interatrial septum is intact with no evidence for an atrial septal defect. AORTIC VALVE The aortic valve is normal in structure and function. No aortic regurgitation is present. There is no aortic valvular stenosis. There is no aortic valvular vegetation. MITRAL VALVE The mitral valve is normal in structure and function. There is no evidence of mitral valve prolapse. There is no mitral valve stenosis. There is no mitral valve regurgitation noted. TRICUSPID VALVE The tricuspid valve is normal in structure and function. There is no tricuspid valve regurgitation noted. There is no tricuspid valve prolapse or vegetation. There is no tricuspid valve stenosis. PULMONIC VALVE The pulmonary valve is normal in structure and function. There is no pulmonic valvular regurgitation. There is no pulmonic valvular stenosis. GREAT VESSELS The aortic root is normal in size. The ascending aorta is normal in size. The pulmonary artery is normal. The IVC is normal in size and collapses >50% with inspiration. PERICARDIAL EFFUSION The pericardium appears normal. There is no pleural effusion. <Conclusion> Normal left ventricular systolic function and doppler. Transmitral Doppler flow pattern is Grade I-abnormal relaxation pattern.
[2018-09-27 18:37] LABS: CK-MB 1.17 ng/mL (0.0-3.38); TROPONIN I 0.015 ng/mL (0.00-0.120)
--- NOTE | 2018-09-27 22:30 | CP.PCM.PN ---
Subjective - Subjective Subjective: dictated Objective - Vital Signs/Intake and Output Vital Signs (last 24 hours): Temp Pulse Resp BP Pulse Ox 98 F 55 L 20 120/73 96 09/27/18 15:40 09/27/18 15:40 09/27/18 15:40 09/27/18 15:40 09/27/18 15:40 - Medications Medications: Current Medications Aspirin (Aspirin Chewable) 81 mg PO DAILY [facility] Last Admin: 09/27/18 09:59 Dose: 81 mg Clopidogrel Bisulfate (Plavix) 75 mg PO DAILY [facility] Last Admin: 09/27/18 09:59 Dose: 75 mg Enoxaparin Sodium (Lovenox) 40 mg SC DAILY [facility] Last Admin: 09/27/18 09:59 Dose: 40 mg Losartan Potassium (Cozaar) 25 mg PO DAILY [facility] Last Admin: 09/27/18 09:59 Dose: 25 mg Nitroglycerin (Nitrostat Sl Tab) 0.4 mg SL Q5M PRN PRN Reason: chest pain Last Admin: 09/26/18 17:22 Dose: 0.4 mg Pantoprazole Sodium (Protonix Ec Tab) 40 mg PO DAILY [facility] Last Admin: 09/27/18 09:59 Dose: 40 mg Rosuvastatin Calcium (Crestor) 20 mg PO HS [facility] Last Admin: 09/27/18 21:55 Dose: 20 mg - Labs Labs: 09/25/18 14:16 09/25/18 14:16
--- NOTE | 2018-09-28 04:09 | PN ---
DATE: 09/27/2018 SUBJECTIVE: The patient is for stress test, and depending on results of stress test, further plan of care will be determined. PHYSICAL EXAMINATION: VITAL SIGNS: Blood pressure 120/73, pulse 55, respiratory rate 20, and temperature 98. LUNGS: Clear. CARDIOVASCULAR SYSTEM: S1 and S2 regular. ABDOMEN: Soft. ASSESSMENT: Chest pain, rule out coronary artery disease, pending stress test. PLAN: Monitor the patient. Sam Miranda MD
[2018-09-28] MEDS: Pantoprazole 40 mg EC Tab PO SCH (09:18)
[2018-09-28] MEDS: Enoxaparin 40 mg Syringe SC SCH (09:19)
[2018-09-28] MEDS ORDERED: Midazolam 2 MG/2 ML VIAL ONE (15:29)
[2018-09-28] MEDS ORDERED: Verapamil 2 ML ONE (15:30)
--- NOTE | 2018-09-28 16:21 | CP.PCM.PN ---
Subjective - Date & Time of Evaluation Date of Evaluation: 09/28/18 Time of Evaluation: 16:18 - Subjective Subjective: Patient s/p cardiac cath 1. Non obstructive coronaries 2. Normal EF Cath findings do not explain chest pain Recommend CT angio of thoracic Aorta r/o aneurysm and dissection CTA ordered IVf 80cc/hr for 24 hrs Check BUN/Creatinine Objective - Vital Signs/Intake and Output Vital Signs (last 24 hours): Temp Pulse Resp BP Pulse Ox 97.7 F 61 20 114/70 99 09/28/18 07:00 09/28/18 09:17 09/28/18 07:00 09/28/18 09:17 09/28/18 07:00 - Medications Medications: Current Medications Aspirin (Aspirin Chewable) 81 mg PO DAILY [facility] Last Admin: 09/28/18 09:18 Dose: 81 mg Clopidogrel Bisulfate (Plavix) 75 mg PO DAILY [facility] Last Admin: 09/28/18 09:18 Dose: 75 mg Enoxaparin Sodium (Lovenox) 40 mg SC DAILY [facility] Last Admin: 09/28/18 09:19 Dose: Not Given Losartan Potassium (Cozaar) 25 mg PO DAILY [facility] Last Admin: 09/28/18 09:18 Dose: 25 mg Nitroglycerin (Nitrostat Sl Tab) 0.4 mg SL Q5M PRN PRN Reason: chest pain Last Admin: 09/26/18 17:22 Dose: 0.4 mg Pantoprazole Sodium (Protonix Ec Tab) 40 mg PO DAILY [facility] Last Admin: 09/28/18 09:18 Dose: 40 mg Rosuvastatin Calcium (Crestor) 20 mg PO HS [facility] Last Admin: 09/27/18 21:55 Dose: 20 mg - Labs Labs: 09/25/18 14:16 09/25/18 14:16
[2018-09-28] MEDS ORDERED: Sodium Chloride 0.9% 1,000 ML IV SCH (16:30)
--- NOTE | 2018-09-28 21:56 | CARD ---
APPROVED REPORT Date of service: 09/27/2018 EKG Measurement Heart [id number] ID [id number] <Conclusion> Normal sinus rhythm Left anterior fascicular block Abnormal ECG
--- NOTE | 2018-09-28 22:47 | CP.PCM.PN ---
Subjective - Subjective Subjective: dictated Objective - Vital Signs/Intake and Output Vital Signs (last 24 hours): Temp Pulse Resp BP Pulse Ox 97.5 F L 65 20 129/72 98 09/28/18 18:45 09/28/18 18:45 09/28/18 18:45 09/28/18 18:45 09/28/18 18:45 - Medications Medications: Current Medications Aspirin (Aspirin Chewable) 81 mg PO DAILY [facility] Last Admin: 09/28/18 09:18 Dose: 81 mg Enoxaparin Sodium (Lovenox) 40 mg SC DAILY [facility] Last Admin: 09/28/18 09:19 Dose: Not Given Sodium Chloride (Sodium Chloride 0.9%) 1,000 mls @ 80 mls/hr IV .[id number] [facility] Stop: 09/29/18 16:30 Losartan Potassium (Cozaar) 25 mg PO DAILY [facility] Last Admin: 09/28/18 09:18 Dose: 25 mg Pantoprazole Sodium (Protonix Ec Tab) 40 mg PO DAILY [facility] Last Admin: 09/28/18 09:18 Dose: 40 mg Rosuvastatin Calcium (Crestor) 20 mg PO HS [facility] Last Admin: 09/28/18 22:35 Dose: 20 mg - Labs Labs: 09/25/18 14:16 09/25/18 14:16
--- NOTE | 2018-09-29 02:00 | PN ---
DATE: 09/28/2018 SUBJECTIVE: The patient, Jose M, is for cardiac cath. He is afebrile. No shortness of breath. His cardiac cath is negative. He is cleared for discharge. PHYSICAL EXAMINATION: VITAL SIGNS: Blood pressure 129/72, pulse 65, respiratory rate 20, temperature 97.5. LUNGS: Clear. CVS: S1, S2 regular. ABDOMEN: Soft. LABORATORY DATA: WBC 5.7, hemoglobin 13, hematocrit 38.9, platelets 150. The patient's chemistry, sodium 135, potassium 4.7, chloride 100, bicarb 26, BUN 17, creatinine 1. ASSESSMENT: Noncardiac chest pain. Sam Miranda MD cc: MD Pro
[2018-09-29 08:09] LABS: BASO # 0.1 K/uL (0.0-0.2); BASO % 0.9 % (0.0-2.0); EOS # 0.5 K/uL (0.0-0.7); EOS % 7.8 % (0.0-4.0); LYMPH # 1.3 K/uL (1.0-4.3); MEAN CELL VOLUME 95.7 fL (80.0-94.0); MEAN CORPUSCULAR HEMOGLOBIN 31.9 pg (27.0-31.0); MEAN CORPUSCULAR HGB CONC 33.3 g/dL (33.0-37.0); MEAN PLATELET VOLUME 10.8 fL (7.2-11.7); MONO # 0.5 K/uL (0.0-0.8); MONO % 8.1 % (0.0-10.0); NEUT # 3.9 K/uL (1.8-7.0); NEUT % 62.2 % (50.0-75.0); NRBC % 0.1 % (0.0-2.0); RBC 4.82 Mil/uL (4.40-5.90); RED CELL DISTRIBUTION WIDTH 12.9 % (11.5-14.5); WHITE BLOOD COUNT 6.3 K/uL (4.8-10.8)
[2018-09-29 08:18] LABS: HEMOGLOBIN 15.4 g/dL (12.0-18.0)
[2018-09-29 08:29] LABS: ALB/GLOB RATIO 1.3 (1.0-2.1); ALBUMIN 4.3 g/dL (3.5-5.0); ALT/SGPT 28 U/L (21-72); AST/SGOT 37 U/L (17-59); BLOOD UREA NITROGEN 25 mg/dL (9-20); GFR NON-AFRICAN AMERICAN > 60
--- NOTE | 2018-09-29 09:21 | CP.PCM.PN ---
<Adrianna Diaz - Last Filed: 09/29/18 09:17> Subjective - Date & Time of Evaluation Date of Evaluation: 09/29/18 Time of Evaluation: 09:18 - Subjective Subjective: Cardiology Follow Up Patient was seen and examined at bedside. Patient denied any chest pain, shortness of breath, or palpitations. Objective - Vital Signs/Intake and Output Vital Signs (last 24 hours): Temp Pulse Resp BP Pulse Ox 97.7 F 66 20 124/75 97 09/29/18 07:00 09/29/18 07:19 09/29/18 07:00 09/29/18 07:00 09/29/18 07:00 - Medications Medications: Current Medications Aspirin (Aspirin Chewable) 81 mg PO DAILY [facility] Last Admin: 09/28/18 09:18 Dose: 81 mg Enoxaparin Sodium (Lovenox) 40 mg SC DAILY [facility] Last Admin: 09/28/18 09:19 Dose: Not Given Sodium Chloride (Sodium Chloride 0.9%) 1,000 mls @ 80 mls/hr IV .[id number] [facility] Stop: 09/29/18 16:30 Last Admin: 09/28/18 17:45 Dose: Not Given Losartan Potassium (Cozaar) 25 mg PO DAILY [facility] Last Admin: 09/28/18 09:18 Dose: 25 mg Pantoprazole Sodium (Protonix Ec Tab) 40 mg PO DAILY [facility] Last Admin: 09/28/18 09:18 Dose: 40 mg Rosuvastatin Calcium (Crestor) 20 mg PO HS [facility] Last Admin: 09/28/18 22:35 Dose: 20 mg - Labs Labs: 09/29/18 08:04 09/29/18 08:04 - Constitutional Appears: No Acute Distress - Head Exam Head Exam: NORMAL INSPECTION, NORMOCEPHALIC - Eye Exam Eye Exam: EOMI, Normal appearance, PERRL Pupil Exam: NORMAL ACCOMODATION - ENT Exam ENT Exam: Mucous Membranes Moist - Respiratory Exam Respiratory Exam: Clear to Ausculation Bilateral, NORMAL BREATHING PATTERN - Cardiovascular Exam Cardiovascular Exam: +S1, +S2 - GI/Abdominal Exam GI & Abdominal Exam: Soft, Normal Bowel Sounds - Extremities Exam Extremities Exam: Normal Inspection. absent: Pedal Edema, Tenderness - Neurological Exam Neurological Exam: Alert, Awake, Oriented x3 - Psychiatric Exam Psychiatric exam: Normal Affect, Normal Mood - Skin Skin Exam: Dry, Intact, Normal Color, Warm Assessment and Plan - Assessment and Plan (Free Text) Plan: Chest Pain- ACS ruled out Hx of Hypertension, Hyperlipidemia, Tobacco Use Disorder 1 PPD, Prostate CA s/p radiation Imaging: - EJ x3 negative, EKG x 3 - no st changes noted - ECHO: ordered, pending results - Nuclear Stress Test: inferior wall ischemia noted, will plan for cardiac catherization 09/28/18 3pm Management: - Continue with ASA, Cozaar, Crestor - Nuclear Stress Test: inferior wall ischemia noted - S/P Cardiac Cath: nonobstructive coronaries, normal LVEF - Recommend CTA to rule out dissection or aneurysm Case discussed with Dr. Lo, Adrianna Diaz DO, PGY2 <Mitchell Lo - Last Filed: 09/29/18 22:21> Objective - Vital Signs/Intake and Output Vital Signs (last 24 hours): Temp Pulse Resp BP Pulse Ox 97.5 F L 58 L 20 124/68 97 09/29/18 15:50 09/29/18 15:50 09/29/18 15:50 09/29/18 15:50 09/29/18 15:50 Intake and Output: 09/29/18 09/30/18 18:59 06:59 Intake Total 150 Balance 150 - Medications Medications: Current Medications Acetaminophen (Tylenol 325mg Tab) 650 mg PO Q6 PRN PRN Reason: Pain, moderate (4-7) Last Admin: 09/29/18 20:47 Dose: 650 mg Aspirin (Aspirin Chewable) 81 mg PO DAILY [facility] Last Admin: 09/29/18 09:58 Dose: 81 mg Enoxaparin Sodium (Lovenox) 40 mg SC DAILY [facility] Last Admin: 09/29/18 09:58 Dose: 40 mg Losartan Potassium (Cozaar) 25 mg PO DAILY [facility] Last Admin: 09/29/18 09:58 Dose: 25 mg Pantoprazole Sodium (Protonix Ec Tab) 40 mg PO DAILY [facility] Last Admin: 09/29/18 09:58 Dose: 40 mg Rosuvastatin Calcium (Crestor) 20 mg PO HS [facility] Last Admin: 09/29/18 21:44 Dose: 20 mg - Labs Labs: 09/29/18 08:04 09/29/18 08:04 Assessment and Plan - Assessment and Plan (Free Text) Plan: patient seen and evaluated personally by me Plan of care d/w the medical records assistant and as documented
[2018-09-29] MEDS: Enoxaparin 40 mg Syringe SC SCH (09:58)
[2018-09-29] MEDS: Pantoprazole 40 mg EC Tab PO SCH (09:58)
--- NOTE | 2018-09-29 16:49 | CT ---
Date of service: 09/29/2018 CTA chest PE protocol Indication: Chest pain r/o Aortic aneurysm Technique: Contiguous axial images were obtained through the chest with intravenous contrast enhancement. Sagittal and coronal reconstructions were generated and reviewed. This CT exam was performed using 1 or more of the following dose reduction techniques: Automated exposure control, adjustment of the MAA and/or kV according to patient size, and/or use of iterative reconstruction technique. IV contrast: 100 mL Visipaque 320 IV Radiation dose (DLP): 515.54 MGy-cm. Comparison: Chest x-ray performed 09/25/18 Findings: Visualized portions of the inferior thyroid gland appear unremarkable. The mediastinal and hilar vascular structures appear within normal limits. The heart appears within normal limits of size. Atherosclerotic calcification of the aorta. No evidence of aneurysmal dilatation of the aorta or aortic dissection. No large central or segmental pulmonary embolus evident. No focal consolidation. No pleural effusion. No pneumothorax. No suspicious pulmonary nodules measuring greater than 5 mm. Limited visualized portions of the upper abdomen: 7 mm too small to characterize left renal hypodensity; statistically likely a cyst. Small hiatal hernia/distal esophageal wall thickening. Bilateral gynecomastia. Degenerative changes of the spine. Impression: No large central or segmental pulmonary embolus identified. No evidence of aneurysmal dilatation of the aorta or aortic dissection.
--- NOTE | 2018-09-29 21:37 | CP.PCM.PN ---
Subjective - Subjective Subjective: dciated Objective - Vital Signs/Intake and Output Vital Signs (last 24 hours): Temp Pulse Resp BP Pulse Ox 97.5 F L 58 L 20 124/68 97 09/29/18 15:50 09/29/18 15:50 09/29/18 15:50 09/29/18 15:50 09/29/18 15:50 - Medications Medications: Current Medications Acetaminophen (Tylenol 325mg Tab) 650 mg PO Q6 PRN PRN Reason: Pain, moderate (4-7) Last Admin: 09/29/18 20:47 Dose: 650 mg Aspirin (Aspirin Chewable) 81 mg PO DAILY [facility] Last Admin: 09/29/18 09:58 Dose: 81 mg Enoxaparin Sodium (Lovenox) 40 mg SC DAILY [facility] Last Admin: 09/29/18 09:58 Dose: 40 mg Losartan Potassium (Cozaar) 25 mg PO DAILY [facility] Last Admin: 09/29/18 09:58 Dose: 25 mg Pantoprazole Sodium (Protonix Ec Tab) 40 mg PO DAILY [facility] Last Admin: 09/29/18 09:58 Dose: 40 mg Rosuvastatin Calcium (Crestor) 20 mg PO HS [facility] Last Admin: 09/28/18 22:35 Dose: 20 mg - Labs Labs: 09/29/18 08:04 09/29/18 08:04
--- NOTE | 2018-09-30 02:18 | PN ---
DATE: 09/29/2018 SUBJECTIVE: The patient's cardiac cath is negative, but he continued to have headache or dizziness. No nausea or vomiting. PHYSICAL EXAMINATION: VITAL SIGNS: Blood pressure 124/68, pulse 58, respiratory rate 20, temperature 99.5. LUNGS: Clear. CARDIOVASCULAR SYSTEM: S1 and S2 are regular. ABDOMEN: Soft. ASSESSMENT: 1. Noncoronary chest pain. 2. Headache and dizziness, rule out cerebrovascular accident. 3. Hyperlipidemia. PLAN: Continue current medications. Await neurology evaluation. Monitor the patient. Sam Miranda MD
[2018-09-30 07:43] VITALS: PULSE 65; O2SAT 97
[2018-09-30] MEDS: Enoxaparin 40 mg Syringe SC SCH (10:07)
[2018-09-30] MEDS: Pantoprazole 40 mg EC Tab PO SCH (10:07)
--- NOTE | 2018-09-30 14:47 | CP.PCM.PN ---
Subjective - Date & Time of Evaluation Date of Evaluation: 09/30/18 Time of Evaluation: 11:00 - Subjective Subjective: Patient seen today, denies any chest pain, sob, dizziness, headache, dizziness vss and labs - reviewed - stable Objective - Vital Signs/Intake and Output Vital Signs (last 24 hours): Temp Pulse Resp BP Pulse Ox 98.1 F 65 20 120/77 97 09/30/18 07:00 09/30/18 07:00 09/30/18 07:00 09/30/18 07:00 09/30/18 07:00 Intake and Output: 09/30/18 09/30/18 06:59 18:59 Intake Total 150 Balance 150 - Medications Medications: Current Medications Acetaminophen (Tylenol 325mg Tab) 650 mg PO Q6 PRN PRN Reason: Pain, moderate (4-7) Last Admin: 09/29/18 20:47 Dose: 650 mg Aspirin (Aspirin Chewable) 81 mg PO DAILY [facility] Last Admin: 09/30/18 10:07 Dose: 81 mg Enoxaparin Sodium (Lovenox) 40 mg SC DAILY [facility] Last Admin: 09/30/18 10:07 Dose: 40 mg Losartan Potassium (Cozaar) 25 mg PO DAILY [facility] Last Admin: 09/30/18 10:07 Dose: 25 mg Pantoprazole Sodium (Protonix Ec Tab) 40 mg PO DAILY [facility] Last Admin: 09/30/18 10:07 Dose: 40 mg Rosuvastatin Calcium (Crestor) 20 mg PO HS [facility] Last Admin: 09/29/18 21:44 Dose: 20 mg - Labs Labs: 09/29/18 08:04 09/29/18 08:04 Assessment and Plan - Assessment and Plan (Free Text) Assessment: A/P 68 yr old male with pmhx of HTN, Hyperlipidemia admitted with chest pain troponine x 3 - negative -S/P Cardiac Cath: nonobstructive coronaries, normal LVEF CT angio- No large central or segmental pulmonary embolus identified.No evidence of aneurysmal dilatation of the aorta or aortic dissection. D/w Dr. Miranda, cleared for disacharge home today and f/u with Dr. Belle don ein 1 week Discharge plan discussed with patient who understands and agrees with plan
[2018-09-30 16:11] VITALS: BP 117/69; TEMP 97.8
--- NOTE | 2018-09-30 21:51 | CP.PCM.DIS ---
Provider - Provider Date of Admission: 09/25/18 15:46 Attending physician: Sam Miranda MD Consults: 09/26/18 15:30 Cardiology Consult Routine Comment: Consulting Provider: Mitchell Lo Consulting Physician: Mitchell Lo Reason for Consult: c.p Hospital Course - Lab Results Lab Results: Most Recent Lab Values WBC 6.3 K/uL (4.8-10.8) 09/29/18 08:04 RBC 4.82 Mil/uL (4.40-5.90) 09/29/18 08:04 Hgb 15.4 g/dL (12.0-18.0) D 09/29/18 08:04 Hct 46.1 % (35.0-51.0) 09/29/18 08:04 MCV 95.7 fL (80.0-94.0) H 09/29/18 08:04 MCH 31.9 pg (27.0-31.0) H 09/29/18 08:04 MCHC 33.3 g/dL (33.0-37.0) 09/29/18 08:04 RDW 12.9 % (11.5-14.5) 09/29/18 08:04 Plt Count 171 K/uL (130-400) 09/29/18 08:04 MPV 10.8 fL (7.2-11.7) 09/29/18 08:04 Neut % (Auto) 62.2 % (50.0-75.0) 09/29/18 08:04 Lymph % (Auto) 21.0 % (20.0-40.0) 09/29/18 08:04 [place] % (Auto) 8.1 % (0.0-10.0) 09/29/18 08:04 Eos % (Auto) 7.8 % (0.0-4.0) H 09/29/18 08:04 Baso % (Auto) 0.9 % (0.0-2.0) 09/29/18 08:04 Neut # (Auto) 3.9 K/uL (1.8-7.0) 09/29/18 08:04 Lymph # (Auto) 1.3 K/uL (1.0-4.3) 09/29/18 08:04 [place] # (Auto) 0.5 K/uL (0.0-0.8) 09/29/18 08:04 Eos # (Auto) 0.5 K/uL (0.0-0.7) 09/29/18 08:04 Baso # (Auto) 0.1 K/uL (0.0-0.2) 09/29/18 08:04 Sodium 137 mmol/L (132-148) 09/29/18 08:04 Potassium 4.0 mmol/L (3.6-5.2) 09/29/18 08:04 Chloride 99 mmol/L (98-107) 09/29/18 08:04 Carbon Dioxide 27 mmol/L (22-30) 09/29/18 08:04 Anion Gap 14 (10-20) 09/29/18 08:04 BUN 25 mg/dL (9-20) H 09/29/18 08:04 Creatinine 1.1 mg/dL (0.8-1.5) 09/29/18 08:04 Est GFR ( Amer) > 60 09/29/18 08:04 Est GFR (Non-Af Amer) > 60 09/29/18 08:04 POC Glucose (mg/dL) 93 mg/dL (65-110) 09/28/18 17:00 Random Glucose 93 mg/dL (75-110) 09/29/18 08:04 Calcium 9.0 mg/dl (8.6-10.4) 09/29/18 08:04 Magnesium 2.3 mg/dL (1.6-2.3) 09/25/18 14:16 Total Bilirubin 0.5 mg/dL (0.2-1.3) 09/29/18 08:04 AST 37 U/L (17-59) 09/29/18 08:04 ALT 28 U/L (21-72) 09/29/18 08:04 Alkaline Phosphatase 53 U/L (38-126) 09/29/18 08:04 Total Creatine Kinase 139 U/L (55-170) 09/27/18 18:08 CK-MB (Mass) 1.17 ng/mL (0.0-3.38) 09/27/18 18:08 Troponin I 0.0150 ng/mL (0.00-0.120) 09/27/18 18:08 Total Protein 7.6 g/dL (6.3-8.3) 09/29/18 08:04 Albumin 4.3 g/dL (3.5-5.0) 09/29/18 08:04 Globulin 3.3 gm/dL (2.2-3.9) 09/29/18 08:04 Albumin/Globulin Ratio 1.3 (1.0-2.1) 09/29/18 08:04 Triglycerides 54 mg/dL (0-149) D 09/25/18 17:20 Cholesterol 175 mg/dL (0-199) 09/25/18 17:20 LDL Cholesterol Direct 90 mg/dL (0-129) 09/25/18 17:20 HDL Cholesterol 58 mg/dL (30-70) 09/25/18 17:20 TSH 3rd Generation 0.39 mIU/L (0.46-4.68) L 09/25/18 14:16 Discharge Exam - Head Exam Head Exam: NORMAL INSPECTION, NORMOCEPHALIC Discharge Plan - Follow Up Plan Condition: STABLE Disposition: HOME/ ROUTINE Instructions: Chest Pain (DC) Additional Instructions: Please follow up with Dr. Miranda office on Please continue medications as per medication reconciliation Por favor paulina un seguimiento con la oficina del Dr. Miranda el jueves Por favor contine con los medicamentos segn la conciliacin de medicamentos. Referrals: Mitchell Lo MD [Staff Provider] - Sam Miranda MD [Staff Provider] -
--- NOTE | 2018-10-01 04:40 | CARD ---
APPROVED REPORT Date of service: 09/27/2018 Protocol: PHARMACOLOGICAL STRESS Test Type: LEXISCAN Test Indications: CHEST PAIN Medications: LIST SCAN Medical History: CHEST PAIN Target HR: 150 bpm Resting ECG: NSR Resting Heart Rate: 60 bpm Resting Blood Pressure: 130/80mmHg submaximum (85%): 128 bpm TEST SUMMARY [id number]/80.0. INFUSIONDOSE 100:300.00.01.057/.0. [id number]/78.1. PROCEDURE Pharmacologic stress testing was performed using 0.4mg per 5ml of regadenoson given intravenously over 7-10 seconds. Reversal agent aminophyline CAFFEINE CITRATE mg, given intravenously for Headache. POST EXERCISE Reason for Termination: Protocol Completed Target HR: No Max HR: 57 bpm 65% of Maximum Predicted HR: 150 bpm Exercise duration: 00:30 min:sec, 0 Stage Exercise capacity: 1.0METs Max Blood Pressure: 138/78mmHg Blood Pressure response to exercise: normal resting BP - appropriate response Heart Rate response to exercise: appropriate Chest Pain: No, none Angina index: 0 Arrhythmia: No, none ST Change: No, none Deviation: 0 mm INTERPRETATION Stress EKG Conclusion: NEGATIVE LEXISCAN STRESS TEST NORMAL BP RESPONSE TO LEXISCAN RARE VPB'S NUCLEAR STUDIES TO BE READ SEPARATELY EXAM: Myocardial Perfusion STRESS/REST Imaging Protocol The imaging protocol used to acquire images was Stress Tc-99m/rest Tc-99m 1 day Stress Spect myocardial perfusion imaging was performed in supine position 45 minutes following the injection of 13.2 mCi of Tc-99 Myoview. Gated Rest Spect was performed 43 minutes after intravenous 33 mCi Tc-99 Myoview injection. The images were gated to evaluate regional wall motion and calculate ventricular ejection fraction.Images were reconstructed using backfilter projection method in short horizontal and verticle long axis. Spect slices were generated. RESTING DATA AKP764.42plQS7.80L/min ESV54.00mlMyocardial Bkww959.00g Av. Heart Rate59.00bpm EF54.00% STRESS DATA NZK389.27spER7.30L/min ESV54.00mlMyocardial Qfmt449.00g EF54.00% Regional WT score at stress:2.00 Regional WM score at stress:0.00 Summed WT score at stress:20.00 Av. Heart Rate52.00bpmSummed WM score at stress:2.00 LV Perf. Quant 17 Seg. SSS3.50 17 Seg. SRS2.00 17 Seg. SDS2.00 Stress Defect Extent (% LAD)0.95Rest Defect Extent (% LAD)0.65Rev. Defect Extent (% LAD)0.65 Stress Defect Extent (% LCX)16.90Rest Defect Extent (% LCX)3.75Rev. Defect Extent (% LCX)16.90 Stress Defect Extent (% RCA)4.45Rest Defect Extent (% RCA)0.00Rev. Defect Extent (% RCA)3.90 Stress Defect Extent (% SHANIA)7.80Rest Defect Extent (% SHANIA)2.60Rev. Defect Extent (% SHANIA)7.15 Other Information Quality:Good IMPRESSION Abnormal Myocardial Perfusion exercise stress study Left Ventricle LV Function:Left ventricle systolic function is normal. The Ejection Fraction is >55%. Conclusion 1. There is moderate sized mild intensity reversible perfusion defect suggestive of stress induced ischemia in the inferior wall. Abnormal stress test.
== END 2018-09-30 18:30 | disposition home or self-care (01) | DRG 287 ==
LOC: C.ER 11:30 → C.9E 15:46 → C.5S 19:47
PROVIDERS: ADMIT Internal Medicine; ATTEND Internal Medicine
PROC: 4A023N7 Measurement of Cardiac Sampling and Pressure, Left Heart, Percutaneous Approach (ICD-10-PCS; principal; 2018-09-28)
PROC: B2111ZZ Fluoroscopy of Multiple Coronary Arteries using Low Osmolar Contrast (ICD-10-PCS; 2018-09-28)
PROC: B2151ZZ Fluoroscopy of Left Heart using Low Osmolar Contrast (ICD-10-PCS; 2018-09-28)
DX: R07.89 Other chest pain (principal); E78.5 Hyperlipidemia, unspecified; F17.210 Nicotine dependence, cigarettes, uncomplicated; I10 Essential (primary) hypertension; Z85.46 Personal history of malignant neoplasm of prostate; R51 Headache; T46.5X5A Adverse effect of other antihypertensive drugs, initial encounter; R42 Dizziness and giddiness